=== PATIENT | male | born 1950 | race Two or more races ===

== ENCOUNTER 2019-04-01 23:32 | Emergency (ER) | payer BC ==
[~2019-04-01] VITALS: Ht 180.3 cm; Wt 108.9 kg
[2019-04-02] MEDS ORDERED: ZITHROMAX500 MG PO (01:44)
[2019-04-02] MEDS ORDERED: TUSNEL LIQUID178 ML PO (01:44)
== END 2019-04-02 02:14 | disposition home or self-care (01) ==
LOC: ER 23:32
DX: R05 Cough (principal)